=== PATIENT | female | born 1960 | race Caucasian/White ===

== ENCOUNTER 2017-11-26 15:58 | Emergency (ER) | payer OTHER, SELFPAY ==
[2017-11-26 16:12] VITALS: BP 127/73; PULSE 93; RESP 16; TEMP 98.9; O2SAT 96
--- NOTE | 2017-11-26 16:31 | ED PDOC ---
HPI: Back Time Seen by Provider: 11/26/17 16:15 Chief Complaint (Nursing): Back Pain Chief Complaint (Provider): back pain History Per: Patient, Family (Patient's daughter translating in [place]ian for pain ) Additional Complaint(s): 56-year-old female with history of chronic back pain presents to emergency department with lower back pain that radiates down her right leg. Patient was getting out of the shower and felt pain when she lifted her right leg. She did not take anything for pain relief prior to arrival. Patient presents to ED for further evaluation. No acute bowel or bladder dysfunction. Past Medical History Reviewed: Historical Data, Nursing Documentation, Vital Signs Vital Signs: Last Vital Signs Temp 98.9 F 11/26/17 16:09 Pulse 93 H 11/26/17 16:09 Resp 16 11/26/17 16:09 BP 127/73 11/26/17 16:09 Pulse Ox 96 11/26/17 16:09 - Medical History PMH: Back Problems - Family History Family History: States: No Known Family Hx - Living Arrangements Living Arrangements: With Family - Social History Current smoker - smoking cessation education provided: No Alcohol: None Drugs: Denies - Home Medications Home Medications: Ambulatory Orders Medication Instructions Recorded Cyclobenzaprine [Cyclobenzaprine 10 mg PO TID PRN #20 tab 11/26/17 HCl] Naproxen [Naprosyn] 500 mg PO BID #20 tab 11/26/17 - Allergies Allergies/Adverse Reactions: Allergies Allergy/AdvReac Type Severity Reaction Status Date / Time Seafood Allergy SHORTNESS Uncoded 11/26/17 16:09 OF BREATH Review of Systems ROS Statement: Except As Marked, All Systems Reviewed And Found Negative Constitutional: Negative for: Fever, Chills Musculoskeletal: Positive for: Back Pain, Leg Pain (right) Physical Exam - Reviewed Nursing Documentation Reviewed: Yes Vital Signs Reviewed: Yes - Physical Exam Appears: Positive for: Well, Non-toxic, No Acute Distress Skin: Positive for: Normal Color. Negative for: Rash Eye Exam: Positive for: Normal appearance Cardiovascular/Chest: Positive for: Regular Rate, Rhythm Respiratory: Positive for: Normal Breath Sounds Back: Positive for: Vertebral Tenderness (lumbar region). Negative for: L CVA Tenderness, R CVA Tenderness Extremity: Positive for: Other (Straight leg raise positive on right leg 30, patient is able to heel and toe walk) Neurologic/Psych: Positive for: Alert, Oriented, Gait - ECG O2 Sat by Pulse Oximetry: 96 Pulse Ox Interpretation: Normal Medical Decision Making Medical Decision Making: Impression: Acute on chronic back pain Plan: IM toradol PO tylenol - patient declined tylenol PO flexeril Patient has history of chronic back pain with sciatica symptoms down right leg. She was given prescriptions for Naprosyn and Flexeril and was instructed to follow-up with pain management, referral given. Disposition - Clinical Impression Clinical Impression: Back pain with sciatica - Patient ED Disposition Is Patient to be Admitted: No Counseled Patient/Family Regarding: Diagnosis, Need For Followup, Rx Given - Disposition Referrals: Kelsey Thibodeaux MD [Staff Provider] - Disposition: Routine/Home Disposition Time: 17:01 Condition: STABLE Additional Instructions: Take prescription meds as directed. Take Pepcid before taking medications to prevent stomach upset and always take meds with food. Avoid heavy lifting or strenuous activity. Follow-up with primary doctor or pain management for further evaluation of chronic pain. Prescriptions: Cyclobenzaprine [Cyclobenzaprine HCl] 10 mg PO TID PRN #20 tab PRN Reason: Muscle Spasm Naproxen [Naprosyn] 500 mg PO BID #20 tab Instructions: Sciatica (DC), Sciatica Exercises, Low Back Pain in Adults, Back Exercises Forms: [employer] (Malian) Print Language: ARMENIAN
== END 2017-11-26 17:08 | disposition home or self-care (01) ==
LOC: H.ER 15:58
DX: M54.41 Lumbago with sciatica, right side (principal); G89.29 Other chronic pain
CPT/HCPCS: 96372; 99282; J1885